=== PATIENT | female | born 1995 | race Caucasian/White ===

== ENCOUNTER 2020-05-20 16:51 | Outpatient (REF) | payer MEDICARE, MEDICAID, SELFPAY | END 2020-05-20 16:52 | disposition home or self-care (01) | LOC: HO.LAB 16:51 | PROVIDERS: Visit Provider Internal Medicine | DX: Z20.822 Contact with and (suspected) exposure to COVID-19 (principal) | CPT/HCPCS: 36415; C9803; U0003 ==

== ENCOUNTER 2025-04-11 17:54 | Outpatient (REF) | payer BC, SELFPAY ==
--- OUTSIDE RECORDS SUMMARY | 2025-04-11 15:30 | XMS_ITS | Encounter Summary ---
Author Organization [employer] Address [address] [place] [address] Care Team Providers Care Telegraphic Typewriter Operator Name Role Phone Perry Hectorleón URIOSTEGUI Primary Care Provider [phone] Reason for Visit * Reason Comments URI Encounter Details Date Type Department Care Team ([facility] Contact Info) Description 04/11/2025 3:30 PM EST Office Visit [facility] PEDS [address] [place], [place] [phone] Becka Gonzales MD [address] [place] [address] Upper respiratory tract infection, unspecified type (Primary Dx); Sore throat Social History Tobacco Use Types Packs/Day Years Used Date Smoking Tobacco: Never Passive Smoke Exposure: Never Smokeless Tobacco: Never Depression Answer Date Recorded Patient Health Questionnaire-9 Score 0 02/23/2025 Patient Health Questionnaire-9 Score 0 02/23/2025 Last PHQ-9: Questionnaire Data Not on file 1 Housing Stability Answer Date Recorded What is your housing situation today? I have glory lawler 02/23/[address] you li ve. Do you have problems with any of the following? None of the above 02/23/2025 Food Insecurity Answer Date Recorded Within the past 12 months, y ou worried that your food would run out before you got money to buy more: Never True 01/19/2025 Within the past 12 months,th e food you bought just didn't last and you didn't have enough money to get more: Never True 09/2024 Transportation Answer Date Recorded In the past 12 months, has l ack of transportation kept you from medical appts, meetings, work or from getting things needed for daily living? No 01/19/2025 Utilities Answer Date Recorded In the past 12 months, has t he electric, gas, oil or water company threatened to shut off services in your home? No 01/19/2025 Depression Answer Date Recorded Patient Health Questionnaire-2 Score 0 02/23/2025 Internet Access Answer Date Recorded Internet Access Q1 Yes 01/19/2025 Internet Access Q2 Not on file 01/19/2025 Comments No Sex and Gender Information Value Date Recorded Sex Assigned at Female 01/24/2025 1:28 PM EDT Legal Sex Female 8:56 AM EDT Gender Identity Female 01/19/2025 9:22 AM EDT Sexual Orientation Straight 01/19/2025 9: 22 AM EDT documented as of this encounter Last Filed Vital Signs Vital Sign Reading Time Taken Comments Blood Pressure 120/78 04/11/2025 3:21 PM EST Pulse 82 04/11/2025 3:21 PM EST Temperature 37.2 C (99 F) 04/11/2025 3:21 PM EST Respiratory Rate 20 04/11/2025 3:21 PM EST Oxygen Saturation 97% 04/11/2025 3:21 PM EST Inhaled Oxygen Concentration - - Weight 75.8 kg (167 lb 3.2 oz) 04/11/2025 3:21 P M EST Height 149.9 cm (4' 11 ) 04/11/2025 3:21 PM EST Body Mass Index 33.77 04/11/2025 3:21 PM EST documented in this encounter Progress Notes * Becka Gonzales MD - 04/11/2025 3:30 PM EST Subjective Patient ID: Naomi Oliva is a 29 y.o. female who presents for URI. 29 y.o. here in an acute visit given 5 day history of sorethroat and bilateral ear ache - reports various people at work are sick with COVID, she works with seniors URI This is a new problem. The current episode started in the past 7 days. The problem has been waxing and waning. There has been no fever. Associated symptoms include congestion, coughing, ear pain, headaches, a plugged ear sensation, rhinorrhea and a sore throat. Pertinent negatives include no abdominal pain, chest pain, diarrhea, dysuria, nausea, vomiting or wheezing. She has tried acetaminophen for the symptoms. The treatment provided mild relief. Review of Systems HENT: Positive for congestion, ear pain, rhinorrhea and sore throat. Respiratory: Positive for cough. Negative for wheezing. Cardiovascular: Negative for chest pain. Gastrointestinal: Negative for abdominal pain, diarrhea, nausea and vomiting. Genitourinary: Negative for dysuria. Neurological: Positive for headaches. Objective BP 120/78 (BP Location: Right arm, Patient Position: Sitting, BP Cuff Size: Adult) Pulse 82 Temp 99 ??F (37.2 ??C) (Oral) Resp 20 Ht 4' 11 (1.499 m) Wt 167 lb 3.2 oz (75.8 kg) SpO2 97% BMI 33.77 kg/m?? Physical Exam Constitutional: General: She is not in acute distress. Appearance: She is not ill-appearing. HENT: Head: Normocephalic and atraumatic. Right Ear: Ear canal and external ear normal. There is no impacted cerumen. Left Ear: Ear canal and external ear normal. There is no impacted cerumen. Ears: Comments: R ear canal: TM performation and white likely chronic scarring L ear canal: Likely chronic scarring Nose: No congestion. Mouth/Throat: Pharynx: Posterior oropharyngeal erythema present. Eyes: General: Right eye: No discharge. Left eye: No discharge. Extraocular Movements: Extraocular movements intact. Conjunctiva/sclera: Conjunctivae normal. Pupils: Pupils are equal, round, and reactive to light. Cardiovascular: Rate and Rhythm: Regular rhythm. Pulmonary: Effort: Pulmonary effort is normal. No respiratory distress. Breath sounds: Normal breath sounds. No wheezing. Musculoskeletal: Cervical back: Normal range of motion. Neurological: General: No focal deficit present. Mental Status: She is alert. Psychiatric: Mood and Affect: Mood normal. Assessment/Plan Problem List Items Addressed This Visit Upper respiratory tract infection - Primary Rapid testing negative. Supportive care and followup PRN. Will send out resp swab PCR Relevant Orders Respiratory Viral Panel PCR Other Visit Diagnoses Sore throat Relevant Orders POCT Rapid Covid-19 BinaxNOW POCT Rapid Influenza A OSOM POCT Rapid Influenza B OSOM POCT Rapid Strep A OSOM documented in this encounter Miscellaneous Notes * Assessment & Plan Note - Becka Gonzales MD - 04/11/2025 3:48 PM EST Associated Problem(s): Upper respiratory tract infection Rapid testing negative. Supportive care and followup PRN. Will send out resp swab PCR documented in this encounter Plan of Treatment Scheduled Orders Name Type Priority Associated Diagnoses Orde r Schedule Respiratory Viral Panel PCR Lab Routine Upper respiratory tract infection, unspecified type Ordered: 04/11/2025 documented as of this encounter Procedures Procedure Name Priority Date/Time Associated Diagnosis Comments POCT RAPID STREP A Routine 04/11/2025 3: 57 PM EST Sore throat POCT INFLUENZA B Routine 04/11/2025 3:56 PM EST Sore throat POCT INFLUENZA A Routine 04/11/2025 3:55 PM EST Sore throat POCT RAPID COVID ANTIGEN Routine 04/11/2025 3:54 PM EST Sore throat documented in this encounter Results * POCT Rapid Strep A OSOM (04/11/2025 3:57 PM EST) Pathologist [facility] Rapid Strep A Screen Negative Negative, None Detected QC Media Lot # [id number] Lot# Expiration Date , Swab 04/11/2025 3:57 PM EST Becka Gonzales MD POINT OF CARE TEST ENTER/EDIT ORDERABLES Edited Result - Final * POCT Rapid Influenza B OSOM (04/11/2025 3:56 PM EST) Pathologist [facility] Rapid Influenza B Ag Negative Negative, Indeterminate QC Media Lot # [id number] Lot# Expiration Date 1,027 Swab 04/11/2025 3:56 PM EST us Becka Gonzales MD POINT OF CARE TEST ENTER/EDIT ORDERABLES Final Result * POCT Rapid Influenza A OSOM (04/11/2025 3:55 PM EST) [facility] Rapid Influenza A Ag Negative Negative, Indeterminate QC Media Lot # [id number] Lot# Expiration Date 1,[id number] Swab Nasopharyngeal structure / Unknown 04/11/2025 3:55 PM EST Becka Gonzales MD POINT OF CARE TEST ENTER/EDIT ORDERABLES Final Result * POCT Rapid Covid-19 BinaxNOW (04/11/2025 3:54 PM EST) [facility] Rapid COVID Ag Negative QC Media Lot # [id number] Lot# Expiration Date 8,026 Swab 04/11/2025 3:54 PM EST Becka Gonzales MD POINT OF CARE TEST ENTER/EDIT ORDERABLES Final Result documented in this encounter Visit Diagnoses Diagnosis Upper respiratory tract infection, unspecified type- Primary Sore throat Acute pharyngitis documented in this encounter Additional Health Concerns Assessment Noted Time PHQ-9 Depression Total Score: 0 02/24/20 11:19 AM EDT documented as of this encounter Care Teams Telegraphic Typewriter Operator Relationship Specialty Start Date End Date Shonda Amador CNP [address] [place] [address] PCP - General Family Medicine 02/23/25 documented as of this encounter
--- OUTSIDE RECORDS SUMMARY | 2025-04-11 18:02 | XMS_ITS | Clinical Summary ---
Author Organization [employer] Address [address] [place] [address] Care Team Providers Care End Touching Machine Operator Name Role Phone Perry Hectorleón URIOSTEGUI Primary Care Provider [phone] Allergies Active Allergy Reactions Criticality Noted Date Comments Buspirone 02/09/2022 Egg Protein (Egg White) 01/02/2015 rash Egg Solids, Whole 02/22/2025 Fish Allergy 01/02/2015 Has epi pen Latex Rash Low 12/05/2014 Other 02/22/2025 Other Reaction(s): mayonaise Medications cetirizine (ZyrTEC) 10 MG tablet Take 10 mg by mouth at bedtime. 023 Active Apri 0.15-30 MG-MCG tablet TAKE 1 ACTIVE PILL DAILY IN THE EVENING 025 Active EPINEPHrine (Epipen) 0.3 MG/0.3ML injection syringe Inject 0.3 mg under the skin 1 (one) time. Active famotidine (Pepcid) 20 MG tablet Take 1 Tablet by mouth at bedtime as needed for Heartburn. 025 Active Fluticasone-Salm eterol 100-50 MCG/ACT aerosol powder NEEDED Active Gonal-f RFF Rediject 900 UNT/1.44ML solution pen-injector INJECT 450 UNITS SUBCUTANEOUSLY DAILY DIRECTED 025 Active levocetirizine (Xyzal) 5 MG tablet TAKE 1 TABLET BY MOUTH EVERY NIGHT DIRECTED 025 Active montelukast (Singulair) 10 MG tablet NEEDED 020 Active naproxen (Naprosyn) 500 MG tablet Take 500 mg by mouth with breakfast and with evening meal. 025 2025 Active Fluticasone-Salm eterol (Advair Diskus) 500-50 MCG/ACT aerosol powder Inhale 1 puff Once per day. 009 Active Multiple Vitamin (Multi-Vitamin) tablet Take 1 tablet by mouth Once per day. 015 Active Menopur 75 units reconstituted solution 025 Active Fluticasone Furoate-Vilanter ol (Breo Ellipta) 100-25 MCG/ACT aerosol powder INHALE 1 INHALATION INTO THE LUNGS ONCE DAILY 022 Active Novarel 5000 units reconstituted solution 025 Active cetrorelix (Cetrotide) 0.25 MG injection 025 Active bromocriptine (Parlodel) 2.5 MG tablet Take 1.25 mg by mouth. 023 Active albuterol 108 (90 Base) MCG/ACT inhalerIndicatio ns:Encounter for physical examination,Mode rate persistent asthma, unspecified whether complicated Inhale 2 puffs every 6 (six) hours if needed for wheezing. 18 g 11 025 Active Dupixent 300 MG/2ML solution prefilled syringe injectionIndicat ions:Allergy, sequela INJECT 1 SYRINGE UNDER THE SKIN EVERY 14 DAYS 2 each 025 Active Dupixent 300 MG/2ML solution prefilled syringe injectionIndicat ions:Allergy, sequela Inject 1 Syringe (300 mg) under the skin every 14 (fourteen) days. 2 each 025 2024 Discontinued(R eorder (will not trigger notification to Pharmacy)) Active Problems Problem Noted Date Diagnosed Date Upper respiratory tract infection 04/11/2025 Assessment & Plan (04/11/2025 3:48 PM EST): Rapid testing negative. Supportive care and followup PRN. Will send out resp swab PCR Amnesia memory loss 02/22/2025 Overview (02/22/2025): assoc with angry outbursts, onset was 2 yrs ago. this will occur 3 x monthly. 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 I placed referral to pulm Orders: albuterol 108 (90 Base) MCG/ACT inhaler; Inhale 2 puffs every 6 (six) hours if needed for wheezing. Referral to Pulmonology; Future LGSIL on Pap smear of cervix 12/04/2020 Left knee pain 08/14/2015 Overview (02/22/2025): Normal film [facility] 08/12/15 Lumbago 08/14/2015 Overview (02/22/2025): ----- Message from Eusebia Diaz sent at 08/20/2015 4:19 PM EDT ----- Patient informed but not satisfied due to pt is still has knee and back pain. eusebia ----- Message ----- 08/12/15 [facility]:Unremarkable film: normlal height and alignment. No disc space narrowing SI joints unremarkable Right ear injury 12/05/2014 Overview (02/22/2025): Tm open on exam. Pt reports had tubes. Not sure how long this has been . Ref to ENT as hearing is decreased 01/15/15: saw Dr. Nathan Hernandez, #[phone] exam with TM fibrosis bilat. Audiogram reveal mild conductive loss in right plan decongestant, may get ventilating tube in the right Resolved Problems Problem Noted Date Diagnosed Date Resolved Date Mixed anxiety depressive disorder 02/22/2025 02/23/2025 Overview (02/22/2025): sees therapist at [facility] H/O anxiety disorder 02/22/2025 025 Overview (02/22/2025): per welding process specialist note Will see counselor Wednesday, Rossana León,; denies Si/ hi no medication for anxiety In basketed [facility] today rec note form [facility] being followed by [place] [facility]. Sees Niya Mau #[phone] No meds . No dx listed Anxiety 03/20/2021 02/23/2025 LGSIL of cervix of undetermined significance 02/23/2025 Overview (02/22/2025): Component Ref Range & Units 11 mo ago PAP, GAMBLING BROKER CYTOLOGY NORMAL ABNORMAL Abnormal P Resulting Agency [facility] Impression Performed by: [facility] Tissue Source: 1: THINPREP GAMBLING BROKER PAP TEST, CERVICAL: Final Diagnosis: LOW GRADE SQUAMOUS INTRAEPITHELIAL LESION. Satisfactory for evaluation. Endocervical/transformation zone present. Slow transit constipation 02/25/2017 Generalized abdominal pain 03/11/2016 1 Overview (02/22/2025): [facility] 02/23/16- abd pain labs and us flat- d/lynn with ppi Pap smear for cervical cancer screening 08/02/2015 02/23/2025 Overview (02/22/2025): 08/02/15 searched [facility] no pap found amydia Trachomatis Urine AMP Probe *NEGATIVE 09/13/13 13:53 *NEGATIVE 08/05/11 14:55 *NEGATIVE 06/15/11 15:25 Neisseria Gonorrhoeae Urine AMP Probe *NEGATIVE 09/13/13 13:53 *NEGATIVE 08/05/11 14:55 *NEGATIVE 06/15/11 15:25 Chlamydia Trachomatis Amplified Probe *NEGATIVE 02/26/15 14:16 *NEGATIVE 03/06/14 14:50 -- Neisseria Gonorrhoeae Amplified Probe *NEGATIVE 02/26/15 14:16 *NEGATIVE All normal. merlin Mastalgia 12/05/2014 02/23/2025 Overview (02/22/2025): 11/29/14 welding process specialist visit, normal welding process specialist exam 07/21/18 Seen at [facility] for breast pain. Normal breast exam, the pain is clinically referred to breast from underlying myofascial sourse. Tx: IBU 400 mg BID w/ food, warm compresses, Vit D 1000 IU and Flaxseed oil capsules. Encounters Date Type Department Care Team Description 04/11/2025 3:30 PM EST Office Visit [facility]ED[facility] [address] [place] [address] Becka Gonzales MD Upper respiratory tract infection, unspecified type (Primary Dx); Sore throat 04/11/2025 Travel 03/29/2025 Telephone [facility] [address] [place] [id number] Shonda Amador CNP letter 03/23/2025 Refill [facility] [address] [place] [address] Shonda Amador CNP Allergy, sequela 03/09/2025 Telephone [facility] [address] [place] [address] Shonda Amador CNP Prior Authorization 03/07/2025 Telephone [facility] [address] [place] [address] Shonda Amador CNP Record Request 02/23/2025 10:45 AM EDT Office Visit [facility] [address] [place] [address] Shonda Amador CNP Encounter for physical examination (Primary Dx); Moderate persistent asthma, unspecified whether complicated; Dietary counseling; Exercise counseling; Class 1 obesity due to excess calories with serious comorbidity and body mass index (BMI) of 33.0 to 33.9 in adult; Allergy, sequela 02/23/2025 Travel 02/22/2025 Telephone [facility] [address] [place] [address] Carolina Martines MA chart prep 02/15/2025 Patient Outreach [facility] [address] [place] [id number] Shonda Amador CNP Care Coordination (CH[facility] outreach for SDOH housing search-referral completed ) 02/15/2025 Patient Outreach [address] [address] Naveed Mercado MD Pre-visit Planning (SDOH screening positive and Tobacco screening negative) 01/25/2025 Telephone [facility] [address] [place] [address] Chiquita José FNP chart prep 01/19/2025 Patient Outreach [address] [address] Naveed Mercado MD Pre-visit Planning (SDOH screening positive and Tobacco screening negative) 01/19/2025 Travel from Last 3 Months Immunizations Immunization Administration Dates Next Due DTaP 07/06/1997, 5,01/29/1994,11/28/18 94,1993 HPV, Quadrivalent 12/26/2019, 6,03/09/2016,12/11/19 09,01/05/2008,10/20/2007 Hep B, Adolescent or Pediatric 01/29/1994,1993,1993 HiB, unspecified 01/22/1995, 4,1993,09/28/18 94 MMR 07/06/1997,01/22/1995 Meningococcal MCV4O 08/18/2011,10/20/2007 OPV, Trivalent 07/06/1997, 5,01/29/1994,11/28/18 94,1993 PPD Test 12/21/2016 Pfizer Covid-19 Vaccine 12+ 02/04/2021 Pneumococcal Polysaccharide PPSV23 09/12/2021 Tdap 06/17/2023,01/19/2006 Varicella 09/03/1998,10/19/1997 Family History Medical History Relation Name Comments Asthma Brother 1 Charly Alnaiz defects Brother 1 Charly Alaniz Kidney disease Brother 1 Charly Alaniz Learning disabilities Brother 1 Charly Alaniz Asthma Brother 2 Mark Oliva Arthritis Maternal Grandmother Johan Oliva Diabetes Maternal Grandmother Johan Oliva Hypertension Maternal Grandmother Johan Oliva Arthritis Mother Aurea Awad, Mom Asthma Mother Aurea Awad, Mom Asthma Sister Adriana Oliva Relation Name Status Comments Brother 1 Charly Alaniz Alive Brother 2 Johan Oliva Alive Maternal Grandmother Johan Oliva Alive Mother Aurea Awad, Mom Alive Sister Adriana Oliva Alive Social History Tobacco Use Types Packs/Day Years Used Date Smoking Tobacco: Never Passive Smoke Exposure: Never Smokeless Tobacco: Never Tobacco Cessation:Counseling Given: Not Answered Depression Answer Date Recorded Patient Health Questionnaire-9 [...] Q2 Not on file 01/19/2025 Comments No Intention Date Recorded Wants to become (finding) 02/23 Sex and Gender Information Value Date Recorded Sex Assigned at Female 01/24/2025 1:28 PM EDT Legal Sex Female 8:56 AM EDT Gender Identity Female 01/19/2025 9:22 AM EDT Sexual Orientation Straight 01/19/2025 9: 22 AM EDT Last Filed Vital Signs Vital Sign Reading [...] Mass Index 33.77 04/11/2025 3:21 PM EST Plan of Treatment Health Maintenance Due Date Last Done Comments Lipid Panel 1993 Hepatitis C Screening 2011 Pap Smear 2014 Cervical Cancer Screening 2023 HPV/Cotest 2023 Influenza Vaccine (#1) 2025 Postp oned from 01/15/2025 (Patient Refused) Disability Screening 01/19/2026 01/19/2025 Alcohol/Substance Use Screening 02/23/2026 02/23/2025 COVID-19 Vaccine ( season) 2026 02/04/2021, 01/17/2021 Postponed from 01/15/2025 (Patient Refused) Depression Screening 02/23/2026 02/23/2025, 02/24/20 Family Planning (PISQ) 02/23/2026 02/23/2025 Pneumococcal Vaccine: Pediatrics (0 to 5 Years) and At-Risk Patients (6 to 49) Years (2 of 2 - PCV) 02/23/2026 09/12/2021 Postponed from 09/12/2022 (Patient Refused) SDOH Screening 02/23/2026 02/23/2025 Tobacco Screening 04/11/2026 04/11/2025 DTaP/Tdap/Td Vaccines (8 - Td or Tdap) 06/17/2033 06/17/2023, 01/19/2006, 07/06/1997, Additional history exists Zoster Vaccines (1 of 2) 2043 RSV Patients and Patients Aged 60 years or older (1 - 1-dose 75+ series) 2068 Hepatitis B Vaccines Completed 01/29/1994, 1993, 1993 HIB Vaccines Completed 01/22/1995, 01/15, 1993, Additional history exists IPV Vaccines Completed 07/06/1997, 12/1994, 01/29/1994, Additional history exists Meningococcal Vaccine Completed 08/18/2011, 008 HIV Screening Completed 12/05/2014 HPV Vaccines Completed 12/26/2019, 04/17, 03/09/2016, Additional history exists Hepatitis A Vaccines Aged Out No long er eligible based on patient's age to complete this topic Meningococcal B Vaccine Aged Out No l onger eligible based on patient's age to complete this topic RSV under 20 months Aged Out No longe r eligible based on patient's age to complete this topic Rotavirus Vaccines Aged Out No longer eligible based on patient's age to complete this topic Procedures Procedure Name Priority Date/Time Associated Diagnosis Comments POCT RAPID STREP A Routine 04/11/2025 3: 57 PM EST Sore throat POCT INFLUENZA B Routine 04/11/2025 3:56 PM EST Sore throat POCT INFLUENZA A Routine 04/11/2025 3:55 PM EST Sore throat POCT RAPID COVID ANTIGEN Routine 04/11/2025 3:54 PM EST Sore throat from Last 3 Months Results * POCT Rapid Strep A OSOM (04/11/2025 3:57 PM EST) [facility] Rapid Strep A Screen Negative Negative, None Detected QC Media Lot # [id number] Lot# Expiration Date [id number] Swab 04/11/2025 3:57 PM EST Becka Gonzales MD POINT OF CARE TEST ENTER/EDIT ORDERABLES Edited Result - Final * POCT Rapid Influenza B OSOM (04/11/2025 3:56 PM EST) Rapid Influenza B Ag Negative Negative, Indeterminate QC Media Lot # [id number] Lot# Expiration Date Swab 04/11/2025 3:56 PM EST Becka Gonzales MD POINT OF CARE TEST ENTER/EDIT ORDERABLES Final Result * POCT Rapid Influenza A OSOM (04/11/2025 3:55 PM EST) Rapid Influenza A Ag Negative Negative, Indeterminate QC Media Lot # [id number] Lot# Expiration Date Swab Nasopharyngeal structure / Unknown 04/11/2025 3:55 PM EST Result [facility] Becka Gonzales MD POINT OF CARE TEST ENTER/EDIT ORDERABLES Final Result * POCT Rapid Covid-19 BinaxNOW (04/11/2025 3:54 PM EST) Rapid COVID Ag Negative QC Media Lot # [id number] Lot# Expiration Date [id number] Swab 04/11/2025 3:54 PM EST Result [facility] Becka Gonzales MD POINT OF CARE TEST ENTER/EDIT ORDERABLES Final Result from Last 3 Months Insurance [facility] H[facility] Care Teams End Touching Machine Operator Relationship Specialty Start Date End Date Shonda Amador CNP [address] [place] [id number] PCP - General Family Medicine 02/23/25
--- OUTSIDE RECORDS SUMMARY | 2025-04-11 18:03 | XMS_ITS | Encounter Summary ---
Author Organization [employer] Address [address] [place] [address] Care Team Providers Care Power Superintendent Name Role Phone AmadorShonda MOODY Primary Care Provider [phone] Encounter Details Date Type Department Care Team (Latest Contact Info) Description 04/11/2025 Travel Social History Tobacco Use Types Packs/Day Years [...] AM EDT documented as of this encounter Plan of Treatment Not on file documented as of this encounter Visit Diagnoses Not on filedocumented in this encounter Additional Health Concerns Assessment Noted Time PHQ-9 Depression Total Score: 0 02/24/20 11:19 AM EDT documented as of this encounter Care Teams Power Superintendent Relationship Specialty Start Date End Date Shonda Amador CNP [address] [place] [id number] PCP - General Family Medicine 02/23/25 documented as of this encounter
--- OUTSIDE RECORDS SUMMARY | 2025-04-11 18:03 | XMS_ITS | Encounter Summary ---
Author Organization [employer] Address [address] [place] [address] Care Team Providers Care Cosmetologist Name Role Phone Shonda Amador CNP Primary Care Provider [phone] Reason for Visit * Reason Onset Date Comments letter 03/29/2025 Encounter Details Date Type Department Care Team ([facility] Contact Info) Description 03/29/2025 Telephone [facility] [address], [place] [id number] Shonda Amador CNP [address] [place] [address] letter Social History Tobacco Use Types Packs/Day Years [...] AM EDT documented as of this encounter Miscellaneous Notes * Telephone Encounter - Shonda Amador CNP - 03/30/2025 8:41 AM EST Good morning, letter is all set I sent via [employer]. Thank you! * Telephone Encounter - Rachel William - 03/29/2025 1:22 PM EST Tc from pt stated Pa will be approved for medication Dupixent 300 MG/2ML if pt is getting medication from a cessation systems outreach specialist but her appointment will be next year. Pt need a letter stating that pcpwill prescribe medication until pt see a specialist. PCP RAYA Amador documented in this encounter Plan of Treatment Not on file documented as of this encounter Visit Diagnoses Not on filedocumented in this encounter Additional Health Concerns Assessment Noted Time PHQ-9 Depression Total Score: 0 02/24/20 11:19 AM EDT documented as of this encounter Care Teams Cosmetologist Relationship Specialty Start Date End Date Shonda Amador CNP [address] [place] [id number] PCP - General Family Medicine 02/23/25 documented as of this encounter
[2025-04-12 10:05] LABS: Chlamydia pneumoniae PCR Not Detected (Not Detect.); Coronavirus 229E PCR Not Detected (Not Detect.); Coronavirus HKU1 PCR Not Detected (Not Detect.); Coronavirus NL63 PCR Not Detected (Not Detect.); Coronavirus OC43 PCR Not Detected (Not Detect.); RSV PCR Not Detected (Not Detect.); Rhino/Enterovirus PCR Not Detected (Not Detect.)
[2025-04-12 10:16] LABS: Influenza A H1 PCR Not Detected (Not Detect.); Influenza A H1-2009 PCR Not Detected (Not Detect.); Influenza A H3 PCR Not Detected (Not Detect.); SARS-CoV-2 PCR Not Detected (Not Detect.)
== END 2025-04-11 17:55 | disposition home or self-care (01) ==
LOC: HO.HHCLNP 17:54
PROVIDERS: Visit Provider Family Medicine
DX: J06.9 Acute upper respiratory infection, unspecified (principal)
CPT/HCPCS: 87633